=== PATIENT | male | born 1980 | race Caucasian/White ===

== ENCOUNTER 2019-05-25 19:38 | Emergency (ER) | payer OTHER ==
[~2019-05-25] VITALS: Ht 175.3 cm; Wt 106.8 kg
[2019-05-25 19:55] VITALS: Ht 175.3 cm; Wt 106.8 kg
[2019-05-25] MEDS ORDERED: REQUIP3 MG PO (19:57)
[2019-05-25] MEDS ORDERED: [UNRECOGNIZED DRUG - REMARK] (19:57)
[2019-05-25] MEDS ORDERED: GEODON60 MG PO (19:57)
[2019-05-25] MEDS ORDERED: OMEPRAZOLE20 M1 PO (19:58)
[2019-05-25] MEDS ORDERED: UNK CHOLESTEROL MED (19:58)
[2019-05-25] MEDS ORDERED: SILVADENE20 GM TP (20:11)
[2019-05-25 20:22] VITALS: BP 142/82
== END 2019-05-25 20:23 | disposition home or self-care (01) ==
LOC: D.ER 19:38
DX: T14.8XXA Other injury of unspecified body region, initial encounter (principal); X58.XXXA Exposure to other specified factors, initial encounter